=== PATIENT | male | born 1980 | race Caucasian/White ===

== ENCOUNTER 2019-01-14 23:16 | Emergency (ER) | payer OTHER ==
[~2019-01-14] VITALS: Ht 177.8 cm; Wt 74.8 kg
[2019-01-14] MEDS ORDERED: IBUPROFEN 200200 M1 PO (23:30)
[2019-01-14] MEDS ORDERED: TYLENOL EXTRA500 MG PO (23:30)
[2019-01-14 23:50] LABS: ABSOLUTE NEUTROPHILS 9.2 thou/uL (1.4-8.2); BASOPHILS 0.6 % (0.0-2.0); HEMATOCRIT 46.1 % (42.0-52.0); HEMOGLOBIN 15.8 gm/dL (14.0-18.0); MCH 31.6 pg (26.0-34.0); MCHC 34.2 g/dL (28.0-37.0); MCV 92.5 fL (80.0-100.0); MONOCYTES 9.9 % (1.0-8.0); PLATELET COUNT 250 thou/uL (150-400); POLYS 72.5 % (36.0-66.0); RBC 4.99 mil/uL (4.50-6.00); RDW 12.6 % (10.5-14.5); WBC 12.7 thou/uL (4.0-11.0)
[2019-01-15 00:03] LABS: ALBUMIN 4.6 g/dL (3.4-5.0); ANION GAP 13 mmol/L (7-16); BUN 15 mg/dL (7-18); CALCIUM 9.3 mg/dL (8.5-10.1); CHLORIDE 103 mmol/L (98-107); CO2 28 mmol/L (21-32); CREATININE 1.1 mg/dL (0.7-1.3); DIRECT BILIRUBIN < 0.1 mg/dL (<0.1-0.3); GLUCOSE 94 mg/dL (74-106); POTASSIUM 3.3 mmol/L (3.5-5.1); SGOT 23 U/L (15-37); SGPT 20 U/L (30-65); SODIUM 144 mmol/L (136-145); TOTAL BILIRUBIN 0.4 mg/dL (<0.1-1.0); TOTAL PROTEIN 8.4 g/dL (6.4-8.2)
[2019-01-15] MEDS ORDERED: NORCO 5-325 TA1 EAC1 PO (00:43)
[2019-01-15] MEDS ORDERED: NORFLEX100 MG PO (00:43)
[2019-01-15] MEDS ORDERED: SENNA-DOCUSATE1 EAC1 PO (00:43)
[2019-01-15] MEDS ORDERED: IBUPROFEN 800800 M1 PO (00:43)
[2019-01-15 01:00] VITALS: BP 124/74
== END 2019-01-15 01:16 | disposition home or self-care (01) ==
LOC: ER 23:16
PROVIDERS: Emergency Medicine
DX: S80.812A Abrasion, left lower leg, initial encounter (principal); M79.89 Other specified soft tissue disorders; M25.511 Pain in right shoulder; M79.601 Pain in right arm; F17.210 Nicotine dependence, cigarettes, uncomplicated; V23.4XXA Motorcycle driver injured in collision with car, pick-up truck or van in traffic accident, initial encounter; Y93.89 Activity, other specified; Y92.89 Other specified places as the place of occurrence of the external cause; Y99.8 Other external cause status